=== PATIENT | female | born 1980 | race Caucasian/White ===

== ENCOUNTER 2020-04-13 13:28 | Observation (INO) | payer OTHER, SELFPAY ==
--- NOTE | ~2020-04-13 | US_ITS ---
US OB limited w BPP DATE: 04/13/2020 15:01 INDICATION: Gestational diabetes. Dizziness. Check placenta, amniotic fluid index and biophysical pro file TECHNIQUE: Real-time and color flow imaging COMPARISON: None FINDINGS: Live finnegan intrauterine gestation, fetus in longitudinal lie, vertex presentation. Feta l heart rate of 141 bpm. Anterior placenta. Amniotic fluid index measures 14.4 cm, within normal limits. (5th percentile ANALI: 7.7 cm. 95th percen tile ANALI: 24.9 cm.) BIOPHYSICAL PROFILE reported by it desktop support technician: breathin out of 2 movement: 2 out of 2 tone: 2 out of 2 Amniotic fluid pocket: 2 out of 2 Total score: 8 out of 8 IMPRESSION: Normal biophysical profile score of 8 out of 8 Reviewed, dictated and finalized at [facility]. Reviewed, dictated and finalized at location A.
--- NOTE | 2020-04-13 13:28 | OBADM ---
This patient, Guerita Alejandro, admitted to the OB room OB Post 115 for observation. Patient/family oriented to hospital policies and general routines including ID bracelet, bed and alarms, visiting hours, pain management, procedures, bathroom and other care routines, personal items, smoking policy, room service/diet, and visiting hours. Patient/Family are encouraged to report perceived risks to care and to ask questions if they do not understand what they are told or what they should do.
[2020-04-13 13:49] VITALS: BP 133/87; PULSE 111; RESP 16; TEMP 36.6
[2020-04-13 13:56] VITALS: BMI 29.7
[2020-04-13 13:59] LABS: Glucose Point of Care 83 (65-105)
[2020-04-13 14:01] VITALS: BP 128/82; PULSE 103
--- NOTE | 2020-04-13 14:01 | PC.NURSE ---
Updated Dr. Petersen of patient arrival to Ob unit with complaint of dizziness and feeling faint x15 minutes a few hours ago. Patient states feeling has since resolved. Patient states that during period of dizziness she experienced left flank pain that resolved following dizziness. Patient hx of diet controlled GDM with current . Patient states she has not taken her BG today. Patient denies any contractions, LOF or vaginal bleeding. Patient reports active movement throughout day. VSS. BG WNL. Orders received.
[2020-04-13 14:11] LABS: Add Urine Microscopic? YES; Appearance Urine Cloudy (Clear); Bacteria Urine 2+ /hpf; Bilirubin Urine Negative (Negative); Blood Urine Negative (Negative); Color Urine Yellow (Yellow); Glucose Urine UA Negative (Negative); Ketones Urine Negative (Negative); Leukocyte Esterase Ur Trace LEU/UL (Negative); Mucus Urine Moderate /lpf; Nitrate Urine Negative (Negative); Protein Urine 1+ mg/dL (Negative); RBC Urine 0-2 /hpf (0-2); Specific Grav Ur 1.015 (1.001-1.035); Squamous Epithelial Cell Urine Moderate /hpf (Few); Urobilinogen Urine Negative mg/dL (<2.0)
[2020-04-13 14:20] LABS: Basophils Percent Auto 0.3 % (0.2-1.2); Eosinophils Percent Auto 0.3 % (0-4.4); Hematocrit 33.8 % (37.0-47.0); Hemoglobin 11.4 g/dL (12.0-15.0); Immature Granulocyte Absolute 0.04 K/mm3 (0.00-0.031); Immature Granulocyte Percent A 0.4 % (0-0.5); Lymphocytes Absolute Auto 1.57 K/mm3 (0.9-3.2); Lymphocytes Percent Auto 14.7 % (18.3-44.2); Mean Corpuscular HGB Conc 33.7 g/dl (32-36); Mean Corpuscular Hemoglobin 30.2 pg (26-34); Mean Corpuscular Volume 89.4 fl (80-100); Mean Platelet Volume 10.1 fl (7.4-10.4); Monocytes Absolute Auto 0.9 K/mm3 (0.1-0.6); Neutrophils Absolute Auto 8.2 K/mm3 (1.3-6.7); Neutrophils Percent Auto 76.3 % (45.5-73.1); Platelet Count Result 251 k/mm3 (150-375); Red Blood Count 3.78 M/mm3 (4.2-5.4); Red Cell Distribution Width 13.7 % (11.5-14.5); White Blood Count 10.7 K/mm3 (4.5-10.0)
--- NOTE | 2020-04-13 14:22 | PC.NURSE ---
Notified Dr. Petersen of variable decelerations. Order for ultrasound received.
--- NOTE | 2020-04-13 14:29 | PC.NURSE ---
Patient taken to ultrasound via wheelchair.
[2020-04-13 14:33] LABS: Alanine Aminotransferase 7 U/L (4-35); Albumin Level 3.4 g/dL (3.5-5.1); Alkaline Phosphatase 137 U/L (38-126); Anion Gap 6 mmol/L (8-16); Aspartate Amino Transferase 12 U/L (14-36); Bilirubin,Total 0.2 mg/dL (0.2-1.3); Blood Urea Nitrogen 7 mg/dL (7-17); Calcium 8.6 mg/dL (8.4-10.2); Carbon Dioxide 23 mmol/L (22-30); Chloride 108 mmol/L (98-107); Estimated Glomerular Filt Rate > 60; Glucose 84 mg/dL (65-105); Potassium 3.9 mmol/L (3.4-5.0); Sodium 137 mmol/L (137-145)
--- NOTE | 2020-04-13 15:00 | PC.NURSE ---
Patient returned from ultrasound via wheelchair.
--- NOTE | 2020-04-13 15:18 | PC.NURSE ---
Reports lab results and ultrasound report to Dr. Petersen. Updated on maternal assessment and FHT. Discharge orders received.
[2020-04-13] MEDS: cefTRIAXone 1 GM VIAL IM (15:57)
[2020-04-13] MEDS: LIDOCAINE HCL 1% LOCAL INJ 10 ML VIAL 2.1 ML XX (15:57)
--- NOTE | 2020-05-12 21:07 | P.PNOB_ITS ---
OB - Triage/Final Diagnosis Evaluation Laboratory results: Laboratory Tests 04/13/20 04/13/20 04/13/20 13:52 13:55 14:12 WBC 10.7 H RBC 3.78 L Hgb 11.4 L Hct 33.8 L MCV 89.4 MCH 30.2 MCHC 33.7 RDW 13.7 Plt Count 251 MPV 10.1 Immature Gran % (Auto) 0.4 Neut % (Auto) 76.3 H Lymph % (Auto) 14.7 L [place] % (Auto) 8.0 Eos % (Auto) 0.3 Baso % (Auto) 0.3 Lymph # (Auto) 1.57 [place] # (Auto) 0.9 H Eos # (Auto) 0.0 Baso # (Auto) 0.0 Abs Immat Gran (auto) 0.04 H Absolute Neuts (auto) 8.2 H Absolute Nucleated RBC 0.0 Nucleated RBC % 0.0 Sodium Potassium Chloride Carbon Dioxide Anion Gap BUN Creatinine Estim Creat Clear Calc Estimated GFR Glucose POC Capillary Glucose 83 Calcium Total Bilirubin AST ALT Alkaline Phosphatase Total Protein Albumin Urine Color Yellow Urine Appearance Cloudy H Urine pH 6.0 Ur Specific [place] 1.015 Urine Protein 1+ H Urine Glucose (UA) Negative Urine Ketones Negative Ur Blood (Man) Negative Urine Nitrate Negative Urine Bilirubin Negative Urine Urobilinogen Negative Leukocyte Esterase Rfl Trace H Urine RBC 0-2 Urine WBC 4-6 H Ur Squamous Epith Cells Moderate H Urine Bacteria 2+ H Urine Mucus Moderate H 04/13/20 14:12 WBC RBC Hgb Hct MCV MCH MCHC RDW Plt Count MPV Immature Gran % (Auto) Neut % (Auto) Lymph % (Auto) [place] % (Auto) Eos % (Auto) Baso % (Auto) Lymph # (Auto) [place] # (Auto) Eos # (Auto) Baso # (Auto) Abs Immat Gran (auto) Absolute Neuts (auto) Absolute Nucleated RBC Nucleated RBC % Sodium 137 Potassium 3.9 Chloride 108 H Carbon Dioxide 23 Anion Gap 6 L BUN 7 Creatinine 0.50 L Estim Creat Clear Calc Not Reportable Estimated GFR > 60 Glucose 84 POC Capillary Glucose Calcium 8.6 Total Bilirubin 0.2 AST 12 L ALT 7 Alkaline Phosphatase 137 H Total Protein 7.0 Albumin 3.4 L Urine Color Urine Appearance Urine pH Ur Specific [place] Urine Protein Urine Glucose (UA) Urine Ketones Ur Blood (Man) Urine Nitrate Urine Bilirubin Urine Urobilinogen Leukocyte Esterase Rfl Urine RBC Urine WBC Ur Squamous Epith Cells Urine Bacteria Urine Mucus Final Diagnosis (1) Dizziness: Code(s): R42 - Dizziness and giddiness Status: Acute
== END 2020-04-13 16:10 | disposition home or self-care (01) ==
PROVIDERS: Admitting Provider Obstetrics & Gynecology; Visit Provider Obstetrics & Gynecology
DX: O26.899 Other specified pregnancy related conditions, unspecified trimester (principal); R42 Dizziness and giddiness; O24.419 Gestational diabetes mellitus in pregnancy, unspecified control; Z3A.00 Weeks of gestation of pregnancy not specified
CPT/HCPCS: 36415; 76815; 76819; 80053; 81001; 85025; 96372; G0378; G0379; J0696

== ENCOUNTER 2020-04-16 14:44 | Outpatient (CLI) | payer OTHER, SELFPAY ==
[2020-04-16] VITALS (8 sets, daily range): BP systolic 117–136; BP diastolic 78–85; PULSE 85–106; RESP 18; TEMP 36.7
[2020-04-16 15:26] LABS: Basophils Percent Auto 0.4 % (0.2-1.2); Eosinophils Absolute Auto 0.1 K/mm3 (0-0.3); Eosinophils Percent Auto 1.1 % (0-4.4); Hematocrit 34.9 % (37.0-47.0); Hemoglobin 11.7 g/dL (12.0-15.0); Immature Granulocyte Absolute 0.04 K/mm3 (0.00-0.031); Immature Granulocyte Percent A 0.4 % (0-0.5); Lymphocytes Absolute Auto 1.91 K/mm3 (0.9-3.2); Lymphocytes Percent Auto 20.6 % (18.3-44.2); Mean Corpuscular HGB Conc 33.5 g/dl (32-36); Mean Corpuscular Hemoglobin 30.2 pg (26-34); Mean Corpuscular Volume 89.9 fl (80-100); Mean Platelet Volume 10.5 fl (7.4-10.4); Monocytes Absolute Auto 0.7 K/mm3 (0.1-0.6); Monocytes Percent Auto 7.4 % (2.6-8.5); Neutrophils Absolute Auto 6.5 K/mm3 (1.3-6.7); Neutrophils Percent Auto 70.1 % (45.5-73.1); Platelet Count Result 246 k/mm3 (150-375); Red Blood Count 3.88 M/mm3 (4.2-5.4); Red Cell Distribution Width 14.1 % (11.5-14.5); White Blood Count 9.3 K/mm3 (4.5-10.0)
[2020-04-16 15:28] LABS: Add Urine Microscopic? NO; Appearance Urine Clear (Clear); Bilirubin Urine Negative (Negative); Blood Urine Negative (Negative); Color Urine Yellow (Yellow); Glucose Urine UA Negative (Negative); Ketones Urine Negative (Negative); Leukocyte Esterase Ur Negative LEU/UL (NEGATIVE); Nitrate Urine Negative (Negative); Protein Urine Negative (Negative); Specific Grav Ur 1.016 (1.001-1.035); Urobilinogen Urine Negative mg/dL (<2.0)
[2020-04-16 15:33] LABS: Creatinine Urine 86.4 mg/dL; Total Protein Urine Random 10 mg/dL
[2020-04-16 15:38] LABS: Alanine Aminotransferase 7 U/L (4-35); Albumin Level 3.5 g/dL (3.5-5.1); Alkaline Phosphatase 156 U/L (38-126); Anion Gap 7 mmol/L (8-16); Aspartate Amino Transferase 15 U/L (14-36); Bilirubin,Total 0.2 mg/dL (0.2-1.3); Blood Urea Nitrogen 9 mg/dL (7-17); Calcium 8.9 mg/dL (8.4-10.2); Carbon Dioxide 21 mmol/L (22-30); Chloride 107 mmol/L (98-107); Estimated Glomerular Filt Rate > 60; Glucose 78 mg/dL (65-105); Potassium 3.9 mmol/L (3.4-5.0); Sodium 135 mmol/L (137-145); Uric Acid 5.5 mg/dL (2.5-7.5)
--- NOTE | 2020-04-16 16:07 | PC.NURSE ---
Danii Treviño CNM notified regarding reactive NST, serial blood pressures, and PIH lab results. Received orders from [facility] to discharge patient to home and to have patient keep her follow up appointment on Tuesday of next week.
--- NOTE | 2020-04-16 16:28 | PC.NURSE ---
Patient presents to L&D from her OB office for elevated blood pressures. Received orders from Danii Treviño CNM for PIH workup and an NST.
== END 2020-04-16 16:15 | disposition home or self-care (01) ==
LOC: ANHOBOP 14:49 → ANHOBPP 14:51
PROVIDERS: Visit Provider Advanced Practice Midwife
DX: O13.9 Gestational [pregnancy-induced] hypertension without significant proteinuria, unspecified trimester (principal); Z3A.00 Weeks of gestation of pregnancy not specified
CPT/HCPCS: 36415; 59025; 80053; 81003; 82570; 84156; 84550; 85025; 87086; 99199

== ENCOUNTER 2020-04-28 14:08 | Inpatient (IN) | payer OTHER, SELFPAY ==
[2020-04-28] VITALS (102 sets, daily range): BP systolic 110–151; BP diastolic 65–112; PULSE 72–142; TEMP 36.1–37.1; O2SAT 81–100; BMI 30.9
[2020-04-28 15:13] LABS: Basophils Percent Auto 0.3 % (0.2-1.2); Eosinophils Absolute Auto 0.1 K/mm3 (0-0.3); Hemoglobin 11.5 g/dL (12.0-15.0); Immature Granulocyte Absolute 0.07 K/mm3 (0.00-0.031); Immature Granulocyte Percent A 0.7 % (0-0.5); Lymphocytes Absolute Auto 1.36 K/mm3 (0.9-3.2); Mean Corpuscular HGB Conc 33.8 g/dl (32-36); Mean Corpuscular Hemoglobin 30.4 pg (26-34); Mean Corpuscular Volume 89.9 fl (80-100); Mean Platelet Volume 10.6 fl (7.4-10.4); Monocytes Absolute Auto 0.8 K/mm3 (0.1-0.6); Monocytes Percent Auto 8.4 % (2.6-8.5); Neutrophils Absolute Auto 7.4 K/mm3 (1.3-6.7); Neutrophils Percent Auto 75.6 % (45.5-73.1); Platelet Count Result 194 k/mm3 (150-375); Red Blood Count 3.78 M/mm3 (4.2-5.4); Red Cell Distribution Width 13.9 % (11.5-14.5); White Blood Count 9.7 K/mm3 (4.5-10.0)
[2020-04-28 15:21] LABS: Uric Acid 5.5 mg/dL (2.5-7.5)
[2020-04-28 15:23] LABS: Alanine Aminotransferase 11 U/L (4-35); Albumin Level 3.2 g/dL (3.5-5.1); Alkaline Phosphatase 155 U/L (38-126); Anion Gap 6 mmol/L (8-16); Aspartate Amino Transferase 19 U/L (14-36); Bilirubin,Total 0.4 mg/dL (0.2-1.3); Blood Urea Nitrogen 7 mg/dL (7-17); Calcium 8.6 mg/dL (8.4-10.2); Carbon Dioxide 23 mmol/L (22-30); Chloride 106 mmol/L (98-107); Estimated Glomerular Filt Rate > 60; Glucose 123 mg/dL (65-105); Potassium 3.9 mmol/L (3.4-5.0); Sodium 135 mmol/L (137-145)
--- NOTE | 2020-04-28 15:26 | LDADM ---
This patient, Guerita Alejandro, was admitted to Labor/Delivery/Recovery 105 on 04/28/20 at 14:08. Plans for labor, pain management and were discussed with patient. Patient/family oriented to hospital policies and general routines including ID bracelet, bed and alarms, visiting hours, pain management, procedures, bathroom and other care routines, personal items, smoking policy, room service/diet and guest tray routines, security routines, and visiting hours. Patient/Family are encouraged to report perceived risks to care and to ask questions if they do not understand what they are told or what they should do. See OBIX for further documentation.
[2020-04-28] MEDS: OXYTOCIN 30 UNITS/NS 500 ML 30 UNITS/500 ML BAG IV CONT (15:50)
[2020-04-28 16:21] LABS: Hemoglobin A1C 4.7 % (<5.7)
--- NOTE | 2020-04-28 17:58 | WPDOBADMIT ---
Obstetrics - Admit Note Admission Note: MIL for gestational hypertension. record reviewed. No pertinent additions to the history and/or any subsequent changes in the physical findings that are not consistent with the expected course of the were found. Additions to the history and/or subsequent changes in the physical findings follow. None.
--- NOTE | 2020-04-28 18:13 | PM.OBPNLAB ---
Pain Control Date/time seen: 04/28/20 18:13 Pt comfortable Contractions regular Cervix /-3 and well applied AROM small amount of clear odorless fluid Epidural as desired Anticipate
[2020-04-28] MEDS: LORATADINE 10 MG TABLET (18:53)
[2020-04-28] MEDS: fentaNYL CITRATE INJ (*CRX) 100 MCG/2 ML VIAL 50 MCG IV PUSH ×2 (18:56→19:53)
[2020-04-28] MEDS: LACTATED RINGERS 1,000 ML 125 ML IV CONT (20:13)
--- NOTE | 2020-04-28 20:14 | WPDANESEPP ---
Anes - Eval Pre Procedure Procedure: Labor epidural Date/Time: 04/28/20 20:14 Surgeon: Trinity Preop Diagnosis: pain during labor Pre Op Diagnosis: induction Patient Data Age: 40 Gender: F Height: 1.68 m Weight: 86.88 kg Last Vital Signs Temp 37.1 C 04/28/20 19:33 Pulse 79 04/28/20 20:13 BP 133/79 04/28/20 20:13 Pulse Ox 98 04/28/20 20:12 Allergies Allergy/AdvReac Type Severity Reaction Status Date / Time No Known Allergies Allergy Verified 04/13/20 14:17 Home Medications Medication Instructions Recorded Confirmed Type PNV Folic Acid + Iron 1 tablet PO DAILY 04/13/20 04/28/20 History Tums 1 tablet PO DAILY PRN 04/13/20 04/28/20 History famotidine [Pepcid AC] 10 mg PO DAILY PRN 04/13/20 04/28/20 History nitrofurantoin monohyd/m-cryst 100 mg PO BID 7 Days #14 cap 04/13/20 04/28/20 Rx [Macrobid] Laboratory Tests 04/28/20 04/28/20 04/28/20 14:54 14:54 14:54 WBC RBC Hgb Hct MCV MCH MCHC RDW Plt Count MPV Immature Gran % (Auto) Neut % (Auto) Lymph % (Auto) [place] % (Auto) Eos % (Auto) Baso % (Auto) Lymph # (Auto) [place] # (Auto) Eos # (Auto) Baso # (Auto) Abs Immat Gran (auto) Absolute Neuts (auto) Absolute Nucleated RBC Nucleated RBC % Sodium Potassium Chloride Carbon Dioxide Anion Gap BUN Creatinine Estim Creat Clear Calc Estimated GFR Glucose Hemoglobin A1c 4.7 % % (<5.7) Uric Acid Calcium Total Bilirubin AST ALT Alkaline Phosphatase Total Protein Albumin RPR Pending Blood Type AB Positive Antibody Screen Negative 04/28/20 04/28/20 04/28/20 14:55 14:55 14:55 WBC 9.7 K/mm3 K/mm3 (4.5-10.0) RBC 3.78 M/mm3 L M/mm3 (4.2-5.4) Hgb 11.5 g/dL L g/dL (12.0-15.0) Hct 34.0 % L % (37.0-47.0) MCV 89.9 fl fl (80-100) MCH 30.4 pg pg (26-34) MCHC 33.8 g/dl g/dl (32-36) RDW 13.9 % % (11.5-14.5) Plt Count 194 k/mm3 k/mm3 (150-375) MPV 10.6 fl H fl (7.4-10.4) Immature Gran % (Auto) 0.7 % H % (0-0.5) Neut % (Auto) 75.6 % H % (45.5-73.1) Lymph % (Auto) 14.0 % L % (18.3-44.2) [place] % (Auto) 8.4 % % (2.6-8.5) Eos % (Auto) 1.0 % % (0-4.4) Baso % (Auto) 0.3 % % (0.2-1.2) Lymph # (Auto) 1.36 K/mm3 K/mm3 (0.9-3.2) [place] # (Auto) 0.8 K/mm3 H K/mm3 (0.1-0.6) Eos # (Auto) 0.1 K/mm3 K/mm3 (0-0.3) Baso # (Auto) 0.0 K/mm3 K/mm3 (0.0-0.1) Abs Immat Gran (auto) 0.07 K/mm3 H K/mm3 (0.00-0.031) Absolute Neuts (auto) 7.4 K/mm3 H K/mm3 (1.3-6.7) Absolute Nucleated RBC 0.0 K/mm3 K/mm3 (0.0-0.012) Nucleated RBC % 0.0 % % (0.0-0.2) Sodium 135 mmol/L L mmol/L (137-145) Potassium 3.9 mmol/L mmol/L (3.4-5.0) Chloride 106 mmol/L mmol/L (98-107) Carbon Dioxide 23 mmol/L mmol/L (22-30) Anion Gap 6 mmol/L L mmol/L (8-16) BUN 7 mg/dL mg/dL (7-17) Creatinine 0.50 mg/dL L mg/dL (0.7-1.0) Estim Creat Clear Calc Not Reportable Estimated GFR > 60 (59 - ) Glucose 123 mg/dL H mg/dL (65-105) Hemoglobin A1c Uric Acid 5.5 mg/dL mg/dL (2.5-7.5) Calcium 8.6 mg/dL mg/dL (8.4-10.2) Total Bilirubin 0.4 mg/dL mg/dL (0.2-1.3) AST 19 U/L U/L
--- NOTE | 2020-04-28 23:28 | PM.OBPRVD ---
OB - Delivery Note Procedure Delivery date: 04/28/20 Procedure: events: Induced HTN Intrapartal events: None Induction method: per pitocin protocol Delivery monitor: external FHT and external uterine Route of delivery: Episiotomy description: None Laceration Description: None Estimated blood loss (mL): 112 Anesthesia type: Epidural Narrative: Delivery per [facility]. Cord gasses collected and handed off to staff. Baby Date of : 04/28/20 Time of : 23:14 Weeks of gestation at delivery: 38 gender: Male Weight (pounds): 8 Weight (ounces): 1 presentation: vertex position: Left Occiput Anterior Placenta delivery description: Spontaneous cord vessel description: 3 Vessels and Nuchal Cord (Delivered through.) score one minute: 8 score five minutes: 9
[2020-04-29 00:01] VITALS: BP 128/72; PULSE 83
[2020-04-29] MEDS: OXYTOCIN 30 UNITS/NS 500 ML 30 UNITS/500 ML BAG 125 UNITS IV CONT (00:04)
[2020-04-29 00:15] VITALS: BP 132/81; PULSE 80
[2020-04-29] MEDS: WITCH HAZEL 40 PADS 1 PAD TOPICAL (01:47)
[2020-04-29] MEDS: IBUPROFEN 600 MG TABLET PO ×3 (01:47→17:48)
[2020-04-29 01:49] VITALS: BP 132/79; PULSE 84
[2020-04-29 02:30] VITALS: BP 111/77; PULSE 84; RESP 16; TEMP 36.6; O2SAT 99
--- NOTE | 2020-04-29 02:30 | OBPPTRN ---
Patient transferred to post room #288 via wheelchair. Support person present. Oriented to unit, room, information board, rooming in, admission packet and security measures. Patient verbalizes understanding. with patient.
[2020-04-29] MEDS: ACETAMINOPHEN 325 MG TABLET 650 MG PO ×3 (04:17→22:13)
[2020-04-29 05:35] LABS: Hematocrit 33.3 % (37.0-47.0); Hemoglobin 11.2 g/dL (12.0-15.0)
[2020-04-29 05:45] LABS: Glucose Point of Care 85 (65-105)
[2020-04-29 05:45] LABS: Glucose Point of Care 113 (65-105)
--- NOTE | 2020-04-29 07:17 | WPDANLDPN2 ---
Anes-Prog Note L&D Date/Time: 04/29/20 07:17 Comfortable throughout: labor and delivery Neuraxial method: epidural Epidural/Spinal procedure site: clean & non-tender Neuro status: Neuro function grossly intact. Cardiovascular status: normal Respiratory status: normal Airway patency: baseline Mental status: baseline Post-Op hydration status: normal Vital Signs: Last Vital Signs Temp 36.6 C 04/29/20 02:30 Pulse 84 04/29/20 02:30 Resp 16 04/29/20 02:30 BP 111/77 04/29/20 02:30 Pulse Ox 99 04/29/20 02:30 Pain score (VAS): 07/13 I/O: Intake & Output 04/28/20 04/28/20 04/29/20 15:59 23:59 07:59 Output Total 215 Balance -215 Post-procedural complaints: none Patient feedback: Patient satisfied with anesthetic care.
--- NOTE | 2020-04-29 07:34 | PM.OBPNVD ---
OB - PN: Subj Subjective Date/time seen: 04/29/20 07:34 Patient comments: no complaints Bock baby status: doing well OB - PN: Obj Data Labs CBC & Chem 7: 04/29/20 04:20 04/28/20 14:55 Labs: Laboratory Results - last 24 hr 04/28/20 04/28/20 04/28/20 14:54 14:54 14:55 WBC RBC Hgb Hct MCV MCH MCHC RDW Plt Count MPV Immature Gran % (Auto) Neut % (Auto) Lymph % (Auto) [place] % (Auto) Eos % (Auto) Baso % (Auto) Lymph # (Auto) [place] # (Auto) Eos # (Auto) Baso # (Auto) Abs Immat Gran (auto) Absolute Neuts (auto) Absolute Nucleated RBC Nucleated RBC % Sodium Potassium Chloride Carbon Dioxide Anion Gap BUN Creatinine Estim Creat Clear Calc Estimated GFR Glucose POC Capillary Glucose Hemoglobin A1c 4.7 Uric Acid 5.5 Calcium Total Bilirubin AST ALT Alkaline Phosphatase Total Protein Albumin Blood Type AB Positive Antibody Screen Negative 04/28/20 04/28/20 04/28/20 14:55 14:55 15:09 WBC 9.7 RBC 3.78 L Hgb 11.5 L Hct 34.0 L MCV 89.9 MCH 30.4 MCHC 33.8 RDW 13.9 Plt Count 194 MPV 10.6 H Immature Gran % (Auto) 0.7 H Neut % (Auto) 75.6 H Lymph % (Auto) 14.0 L [place] % (Auto) 8.4 Eos % (Auto) 1.0 Baso % (Auto) 0.3 Lymph # (Auto) 1.36 [place] # (Auto) 0.8 H Eos # (Auto) 0.1 Baso # (Auto) 0.0 Abs Immat Gran (auto) 0.07 H Absolute Neuts (auto) 7.4 H Absolute Nucleated RBC 0.0 Nucleated RBC % 0.0 Sodium 135 L Potassium 3.9 Chloride 106 Carbon Dioxide 23 Anion Gap 6 L BUN 7 Creatinine 0.50 L Estim Creat Clear Calc Not Reportable Estimated GFR > 60 Glucose 123 H POC Capillary Glucose 113 H Hemoglobin A1c Uric Acid Calcium 8.6 Total Bilirubin 0.4 AST 19 ALT 11 Alkaline Phosphatase 155 H Total Protein 7.0 Albumin 3.2 L Blood Type Antibody Screen 04/28/20 04/29/20 20:11 04:20 WBC RBC Hgb 11.2 L Hct 33.3 L MCV MCH MCHC RDW Plt Count MPV Immature Gran % (Auto) Neut % (Auto) Lymph % (Auto) [place] % (Auto) Eos % (Auto) Baso % (Auto) Lymph # (Auto) [place] # (Auto) Eos # (Auto) Baso # (Auto) Abs Immat Gran (auto) Absolute Neuts (auto) Absolute Nucleated RBC Nucleated RBC % Sodium Potassium Chloride Carbon Dioxide Anion Gap BUN Creatinine Estim Creat Clear Calc Estimated GFR Glucose POC Capillary Glucose 85 Hemoglobin A1c Uric Acid Calcium Total Bilirubin AST ALT Alkaline Phosphatase Total Protein Albumin Blood Type Antibody Screen OB - PN A/P Plan day: 1 Plan: routine care Time Spent With Patient Time: Total time spent is greater than 50% in coordination of care (as documented) at patient's floor/unit and/or counseling patient: Review of Systems Review of Systems: All systems reviewed & are unremarkable except as noted in HPI and below Exam Const: General: cooperative Orientation/consciousness: oriented to person and patient oriented x3 Extrem: General: normal to inspection
[2020-04-29 08:10] VITALS: BP 124/87; PULSE 92; RESP 18; TEMP 36.5; O2SAT 96
[2020-04-29 09:01] LABS: Rapid Plasma Reagin Non-Reactive (NonReactive)
[2020-04-29] MEDS: MULTIVIT/MIN/PREN/FOL AC/IRON TABLET 1 TAB PO (09:09)
--- NOTE | 2020-04-29 09:15 | PC.NURSE ---
Consulted with patient, mother reports infant is sleepy and need several minutes of stimulation to wake to feed. Assured mother this is normal for the for several days. Reviewed feeding cues, frequencies, duration of feedings, feeding elimination flow sheet, and signs of adequate intake. Demonstrated stimulation techniques to wake infant for feeding. Assisted with to breast. Reviewed positioning/alignment in cross cradle, holding breast in U hold and guided asymmetrical latch on. Mother prefers cradle positioning. was able to latch correctly, slightly shallow. Infant nursed eagerly, with steady draws and frequent swallowing noted. Reviewed signs of a correct latch, effective nursing and suck swallow ratio. was able to maintain latch without discomfort to mother. Nipple care reviewed. Instructed mother to call out for RN assistance if she is unable to latch for feeding or she has discomfort with nursing. Instructed feeding should be initiated three hours from start of last feeding or if feeding cues are noted before. Mother voiced understanding of information shared.
--- NOTE | 2020-04-29 10:45 | PCDIET ---
Consulted with patient, mother reports this to be 5th child to breastfeed, with concerns infant is sleepy and needs to be awoke for feedings. Assured mother this is normal for the first few days and continue to stimulate to wake for feedings. Reviewed feeding cues, frequencies, duration of feedings, feeding elimination flow sheet, and signs of adequate intake. Demonstrated stimulation techniques to wake infant for feeding. Assisted with infant to breast. Reviewed positioning/alignment cross cradle, holding breast in U hold and guided asymmetrical latch on. Discussed rational fore each. Mother prefers the cradle position. Infant was able to latch correctly, slightly shallow by appearance. Mother denies discomfort. Infant nursed eagerly, with steady draws and frequent swallowing noted. Reviewed signs of a correct latch, effective nursing and suck swallow ratio. Infant was able to maintain latch without discomfort to mother. Nipple care reviewed. Suggested to stimulate while feeding to keep infant nursing effectively for increased intake and to assist with maintaining latch. Instructed mother to call out for RN assistance if she is unable to latch for feeding or she has discomfort with nursing. Instructed feeding should be initiated three hours from start of last feeding or if feeding cues are noted before. Mother voiced understanding of information shared.
[2020-04-29] MEDS: LORATADINE 10 MG TABLET PO (17:48)
[2020-04-29 20:45] VITALS: BP 129/78; PULSE 83; RESP 16; TEMP 36.7; O2SAT 99
[2020-04-30] MEDS: IBUPROFEN 600 MG TABLET PO (05:45)
[2020-04-30 07:35] VITALS: BP 116/73; PULSE 71; RESP 18; TEMP 36.8; O2SAT 99
--- NOTE | 2020-04-30 08:01 | P.PCN_ITS ---
OB [place] - Circumcision Consent: Potential risks, benefits, and alternatives have been discussed and questions answered. Family agrees to proceed with circumcision. Preoperative Diagnosis: Normal Foreskin. Postoperative Diagnosis: Normal Foreskin. Date of Circumcision: 04/30/20 Time of Circumcision: 07:55 Type of Circumcision: GOMCO with 1.3 Anesthesia: Dorsal Nerve Block Foreskin: The foreskin was examined and found to be grossly normal. Estimated Blood Loss: None
--- NOTE | 2020-04-30 08:31 | PM.OBPNVD ---
OB - PN: Subj Subjective Date/time seen: 04/30/20 08:31 Patient comments: other (Pt c/o sinus pressure and drainage.) baby status: doing well OB - PN: Obj Data Labs CBC & Chem 7: 04/29/20 04:20 04/28/20 14:55 Labs: Laboratory Results - last 24 hr 04/28/20 14:54 RPR Non-reactive OB - PN A/P Plan day: 2 Plan: routine care and discharge home (F/U in 4 weeks) Comments: Pt c/o sinus pressure and drainage. No fever. Denies body aches, cough, sore throat, loss of senses. History of sinus infections will treat. Time Spent With Patient Time: Total time spent is greater than 50% in coordination of care (as documented) at patient's floor/unit and/or counseling patient: Time with patient: less than 15 minutes Review of Systems Review of Systems: All systems reviewed & are unremarkable except as noted in HPI and below Exam Narrative: Exam Narrative: Fundus firm and vaginal flow controlled. No lower ext redness, warmth, or edema. Negative homans. Const: General: comfortable Chest: Breast/axilla inspection: normal inspection of the breasts Resp: Effort & Inspection: normal respiratory effort Cardio: Rate: regular rate GI: GI Palp: Yes Soft to palpation Psych: Appearance: grossly normal Affect: normal affect Attitude: cooperative Thought content: Yes Normal thought content present Judgement: Good judgement present (Psych)
--- NOTE | 2020-04-30 09:15 | PC.NURSE ---
Mother is able to independently latch infant with appropriate positioning/alignment. She denies any nipple discomfort, is feeding as required and waking to feed if needed. has had at least 8 effective feedings in the past 24 hours, and is currently meeting outcomes for weight, output, jaundice and feeding frequencies. Mother states she feels confident to continue effective at home. Reviewed transition to breast milk, signs of adequate intake, and engorgement/relief. Instructed to call ICP if intake/output less than required. Reviewed regular medications mother is taking. Information provided per [place]. Reviewed community resources on the [facility] website and in the Mom/Baby guide. Information on outpatient services provided. Mother has no further questions at this time.
[2020-04-30] MEDS: MULTIVIT/MIN/PREN/FOL AC/IRON TABLET 1 TAB PO (10:15)
[2020-04-30] MEDS: LORATADINE 10 MG TABLET PO (10:15)
--- NOTE | 2020-04-30 10:30 | PC.NURSE ---
Patient received instruction on viewing the discharge video Mother & Baby Care, The First Two Weeks . Patient was given the opportunity and encouraged to ask questions. Patient verbalized understanding of information shared and has been given the mother/baby guide for home reference.
[2020-05-02 11:37] VITALS: BP 143/88; PULSE 82; RESP 22; O2SAT 100
--- NOTE | 2020-05-12 20:46 | PM.OBDSVD ---
DS: Admitting Diagnosis Admitting Diagnosis Admitting Diagnosis: induction DS: Discharge Diagnosis Discharge Diagnosis (1) Vaginal delivery: Code(s): O80 - Encounter for full-term uncomplicated delivery Status: Acute (2) Gestational [-induced] hypertension without significant proteinuria, complicating childbirth: Code(s): O13.4 - Gestational [-induced] hypertension without significant proteinuria, complicating childbirth Status: Acute OB - DS: Summary OB Procedures : PIH Mgmt OB Procedures Intrapartum: Spontaneous Vag Delivery OB Procedures: : None Time Spent with Patient Time attestation: Total time spent providing and/or coordinating discharge services: DS: Data Data Completed and Pending Completed studies during hospitalization: Pending at discharge 04/29/20 04:59 Surgical [PTH] Routine Discharge Plan Discharge Attending physician on discharge: Danii Treviño Consulting providers: Danii Treviño ; Jennifer Land Discharging Clinician: Danii Treviño Patient Disposition: Home, Self-Care Activity: pelvic rest Diet: as tolerated Discharge Instructions: Education: Mom and Baby Guide and Preeclampsia Handout Given to: Mother Follow-Up: Call your delivering provider's office for an appointment to be seen in: 6 Weeks Mom and baby [facility] come [facility] for the follow-up appointment. Appointment Date/Time: May 02, 2020 at 11:00 am What to expect at your follow-up visit: Physical Assessment Call [phone] if you are unable to keep your appointment time. BREAST CARE: * Wear a snug supportive bra. * For engorgement discomfort: Breast Feeding: * Apply warm moist washcloths * Express milk as needed to relieve engorgement * Wear loose clothing * For sore nipples: * Identify correct latch-on * Apply warm moist washcloths before and after nursing * Air dry nipples after nursing * May apply Lansinoh cream to nipples EPISIOTOMY/PERINEAL CARE: * Until bleeding stops, use your rc bottle after urinating * Change your pad frequently throughout the day * You may take sitz baths several times a day (fill your bathtub with warm water and soak for 20 minutes.) Do NOT bathe in the water * No tub baths until seen by your physician - You may shower ACTIVITY: * Rest as much as possible. * Do not exercise or lift anything heavier than your baby (such as laundry or other children.) * Avoid stairs or driving as much as possible. * Do not put anything into the vagina. No douching, tampons, or sexual activity until seen by physician. NOTIFY PHYSICIAN IF YOU HAVE ANY QUESTIONS OR IF ANY OF THE FOLLOWING SYMPTOMS OCCUR: * If your perineum becomes red, swollen, or more painful than what you have experienced in the hospital. * If your vaginal bleeding becomes foul smelling. * If your vaginal bleeding becomes more heavy than a period or if your bleeding changes from pink to bright red. However, you may pass an occasional walnut-sized clot once or twice for the first week . * If you experience a sharp, shooting pain in you calves. * If you discover a hard, reddened area on your breast or if you experience flu-like symptoms. DIET: * Eat regular, well-balanced meals. * Drink plenty of fluids daily. If , drink to thirst. Patient Instructions: Antibiotic Form Stand Alone Forms: General Discharge Information Follow-up/Referrals: Danii Treviño CNM [Certified Nurse Compensation And Benefits Administrator] - Discharge Medications: New amoxicillin-pot clavulanate [Augmentin] 500-125 mg tablet 1 tablet PO Q12H Qty: 10 RF: 0 Continued famotidine [Pepcid AC] 10 mg Tablet 10 mg PO DAILY PRN (Reason: Heartburn) RF: 0 PNV Folic Acid + Iron 1 tablet PO DAILY RF: 0 Tums 1 tablet PO DAILY PRN (Reason: Heart
== END 2020-04-30 13:27 | disposition home or self-care (01) | DRG 560 ==
LOC: ANHLDR 14:30 → ANHOB2 04-29 03:01
PROVIDERS: Advanced Practice Midwife; Admitting Provider Obstetrics & Gynecology; Visit Provider Obstetrics & Gynecology
DX: O14.94 Unspecified pre-eclampsia, complicating childbirth (principal); Z37.0 Single live birth; Z3A.38 38 weeks gestation of pregnancy; O24.419 Gestational diabetes mellitus in pregnancy, unspecified control; O99.892 Other specified diseases and conditions complicating childbirth; M41.9 Scoliosis, unspecified; O99.214 Obesity complicating childbirth; E66.9 Obesity, unspecified; O69.81X0 Labor and delivery complicated by cord around neck, without compression, not applicable or unspecified
CPT/HCPCS: 36415; 80053; 83036; 84550; 85014; 85018; 85025; 86592; 86850; 86900; 86901; 88307; A9270; J2590; J2795; J3010; J7120